=== PATIENT | male | born 1975 | race Caucasian/White ===

== ENCOUNTER 2018-04-06 12:40 | Emergency (ER) | payer SELFPAY ==
[2018-04-06] MEDS ORDERED: KETOROLAC TROMETHAMINE 60 MG/2 ML VIAL IM ONE (13:03)
--- NOTE | 2018-04-06 13:03 | ED Physician Documentation ---
Lower Extremity Injury - HISTORIAN Historian: patient - HPI Chief Complaint: Lower Extremity Injury Additional Information: 42yo white male who states that while he was working today a pipe fell and hit his right knee at the lower patellar area. Has been having pain in it since that time. Has some mild swelling to the area, mild abrasion. Tetanus within the last 7 years. Onset: hours (2.5 hr ago) Where: work Severity: moderate Context: direct blow Associated Symptoms:: denies: tingling, numbness distally Modifying Factors:: pain on movement - ROS CONST: no problems - PAST HX Past History: none Allergies/Adverse Reactions: Allergies Allergy/AdvReac Type Severity Reaction Status Date / Time No Known Allergies Allergy Verified 04/06/18 13:03 Home Medications: Ambulatory Orders Medication Instructions Recorded Citalopram Hydrobromide [Celexa] 10 mg PO D 04/06/18 - SOCIAL HX Smoking History: greater than 1 pack/day - FAMILY HX Family History: no significant history - VITAL SIGNS Vital Signs: Vital Signs Temp Pulse Resp BP Pulse Ox 98.2 F 78 16 138/78 98 04/06/18 12:42 04/06/18 14:12 04/06/18 14:12 04/06/18 14:12 04/06/18 12:42 - REVIEWED ASSESSMENTS Nursing Assessment Reviewed: Yes Vitals Reviewed: Yes ED Results Lab/Radiology - Radiology Radiology Impressions: Bilateral knees History: Bilateral knee pain. A pipe burst and hit his knees AP, lateral and sunrise views of the bilateral knees demonstrate no osseous abnormality. There is no joint effusion. Mineralization and alignment is normal. Impression: No osseous abnormality. No joint effusion. - Orders Orders: ED Orders Category Date Time Status BILAT KNEES 3 VIEW [RAD] Stat Exams 04/06/18 Completed Ketorolac Tromethamine [Toradol] Med 04/06/18 13:03 Discontinued 60 mg IM NOW ONE Lower Extremities Injury Phy - Physical Exam General Appearance: no acute distress Hips: bilateral hip: non-tender, normal inspection, normal range of motion, no evidence of injury Legs: bilateral: non-tender, normal inspection, normal range of motion, no evidence of injury Knees: right: bone tenderness, ecchymosis (anterior), pain, swelling (lower patellar area), left: non-tender, normal inspection, normal range of motion, no evidence of injury, N/A: deformity (none), joint effusion (none) Ankle: bilateral: non-tender, normal inspection, normal range of motion, no evidence of injury Gait: limited by pain Neuro/Vascular/Tendon: no vascular compromise Head/ENT: nml inspection, pharynx nml Resp/CVS: chest non-tender, breath sounds nml, heart sounds nml Discharge Clincal Impression: Contusion of right knee Referrals: Vickie Balderas FNP [Primary Care Provider] - 2 Days Additional Instructions: Cool compress to the knee. Take Tramadol as needed for pain. Do knee exercises. Condition: Stable Disposition: 01 HOME, SELF-CARE Decision to Admit: NO Date of Decison to Admit: 04/06/18 Decision Time: 13:46
--- NOTE | 2018-04-06 13:51 | Diagnostic Imaging Report ---
SARAVANAN CHARLES [facility] [id number] [facility].[address] [id number] Report Submission Date: Apr 06, 2018 1:34:16 PM CDT Patient Study Name: BOGDAN OSORIO Date: Apr 06, 2018 1:06:29 PM CDT Modality Type: DX Gender: M Description: LOWER EXTREMITY : 79 Institution: [facility] Physician: SARAVANAN CHARLES Bilateral knees History: Bilateral knee pain. A pipe burst and hit his knees AP, lateral and sunrise views of the bilateral knees demonstrate no osseous abnormality. There is no joint effusion. Mineralization and alignment is normal. Impression: No osseous abnormality. No joint effusion. Electronically signed on Apr 06, 2018 1:34:16 PM CDT by: Yamilex LAY
[2018-04-06 14:14] VITALS: BP 138/78
== END 2018-04-06 14:07 | disposition home or self-care (01) ==
LOC: ED 12:40
DX: S80.01XA Contusion of right knee, initial encounter (principal); W23.1XXA Caught, crushed, jammed, or pinched between stationary objects, initial encounter; Y92.9 Unspecified place or not applicable; Y93.9 Activity, unspecified; Y99.9 Unspecified external cause status
CPT/HCPCS: 73562; J1885; 96372; 99283